=== PATIENT | female | born 1980 | race Caucasian/White ===

== ENCOUNTER 2023-11-05 20:57 | Emergency (ER) | payer OTHER ==
[2023-11-05] MEDS ORDERED: Acetaminophen 325 MG TAB ONE (21:40)
[2023-11-05] MEDS ORDERED: Oseltamivir 75 MG CAP ONE (23:54)
[2023-11-05] MEDS ORDERED: Ondansetron ODT 4 MG TAB ONE (23:54)
== END 2023-11-06 00:02 | disposition home or self-care (01) ==
LOC: BURERS 20:57
DX: O99.511 Diseases of the respiratory system complicating pregnancy, first trimester (principal); J11.1 Influenza due to unidentified influenza virus with other respiratory manifestations; O09.511 Supervision of elderly primigravida, first trimester; Z3A.01 Less than 8 weeks gestation of pregnancy
CPT/HCPCS: 87081; 87430; 87804; 99283; Q0162